=== PATIENT | male | born 1990 | race Caucasian/White ===

== ENCOUNTER 2023-12-22 03:16 | Emergency (ER) | payer OTHER ==
[2023-12-22 03:43] VITALS: RESP 18; BMI 24.2
[2023-12-22] MEDS ORDERED: diphenhydrAMINE HCL 25 MG CAPSULE (FP) PO ONE (04:47)
[2023-12-22] MEDS ORDERED: METOCLOPRAMIDE HCL 10 MG TABLET (FP) PO ONE (04:47)
[2023-12-22] MEDS ORDERED: ACETAMINOPHEN 500 MG TABLET (FP) ONE (04:49)
[2023-12-22] MEDS: METOCLOPRAMIDE HCL 10 MG TABLET (FP) PO ONE (05:00)
[2023-12-22] MEDS: diphenhydrAMINE HCL 25 MG CAPSULE (FP) PO ONE (05:00)
[2023-12-22] MEDS: ACETAMINOPHEN 500 MG TABLET (FP) PO ONE (05:01)
[2023-12-22 05:42] LABS: HEMATOCRIT 46.8 % (35.4-49); HEMOGLOBIN 16.3 GM/dL (11.7-16.9); MCH 31.1 pg (25.7-33.7); MCHC 34.7 g/dl (32.0-35.9); MEAN CELL VOLUME 89.6 fl (80-96); MEAN PLT VOLUME 8.3 fl (7.5-11.1); PLATELET COUNT 222 10^3/uL (134-434); RBC 5.23 M/mm3 (4.00-5.60); RDW 12.3 % (11.9-15.9); WHITE BLOOD COUNT 8.2 K/mm3 (4.0-10.0)
[2023-12-22 06:00] LABS: POTASSIUM 3.7 mmol/L (3.5-5.1)
[2023-12-22 06:02] LABS: ALBUMIN 3.9 g/dl (3.4-5.0); CALCIUM 9.3 mg/dL (8.5-10.1)
[2023-12-22 06:03] LABS: BLOOD UREA NITROGEN 13.6 mg/dL (7-18)
[2023-12-22 06:05] LABS: CREATININE 0.9 mg/dL (0.55-1.3)
[2023-12-22 06:10] LABS: TOT PROT 7.7 g/dl (6.4-8.2)
[2023-12-22 06:20] VITALS: BP 120/70; PULSE 81; TEMP 98.4
[2023-12-22 06:59] LABS: ANISOCYTOSIS 2+; MACROCYTOSIS 0; ROULEAU 1+
== END 2023-12-22 06:37 | disposition home or self-care (01) ==
LOC: JER 03:16
DX: J02.0 Streptococcal pharyngitis (principal); R51.9 Headache, unspecified
CPT/HCPCS: 36415; 80053; 85025; 99283-25